=== PATIENT | female | born 1935 | race Caucasian/White ===

== ENCOUNTER → 2018-05-12 | Outpatient (CLI) | payer OTHER, MEDICARE | LOC: HYPER 04-01 11:47 | DX: L97.822 Non-pressure chronic ulcer of other part of left lower leg with fat layer exposed (principal); C46.1 Kaposi's sarcoma of soft tissue; I10 Essential (primary) hypertension; F03.90 Unspecified dementia, unspecified severity, without behavioral disturbance, psychotic disturbance, mood disturbance, and anxiety; Z86.711 Personal history of pulmonary embolism; Z79.2 Long term (current) use of antibiotics ==

== ENCOUNTER → 2018-06-02 | Outpatient (CLI) | payer OTHER, MEDICARE | LOC: HYPER 06:56 | DX: L97.822 Non-pressure chronic ulcer of other part of left lower leg with fat layer exposed (principal); C46.1 Kaposi's sarcoma of soft tissue; I10 Essential (primary) hypertension; F03.90 Unspecified dementia, unspecified severity, without behavioral disturbance, psychotic disturbance, mood disturbance, and anxiety; Z86.711 Personal history of pulmonary embolism; Z79.2 Long term (current) use of antibiotics ==